=== PATIENT | male | born 1945 | race Caucasian/White ===

== ENCOUNTER 2022-05-26 12:20 | Outpatient (CLI) | payer OTHER, SELFPAY | END 2022-05-26 12:21 | disposition home or self-care (01) | LOC: AMB 06-28 12:07 | PROVIDERS: Visit Provider Emergency Medicine Emergency Medical Services | DX: R10.9 Unspecified abdominal pain (principal); N50.89 Other specified disorders of the male genital organs | CPT/HCPCS: A0425; A0427 ==